=== PATIENT | female | born 1960 | race Caucasian/White ===

== ENCOUNTER 2017-05-12 09:24 | Inpatient (IN) | payer SELFPAY ==
[~2017-05-12] VITALS: Ht 167.6 cm; Wt 46.5 kg
[~2017-05-12 09:24] MED LIST: CALCIUM 500 MG1 EACH PO; DAILY VITAMIN1 EAC8 PO; NORCO 5/3251 TABLET PO; TYLENOL ARTHRI650 MG PO
[2017-05-12 17:12] LABS: EOSINOPHIL (%) 0.3 % (0-5); HEMATOCRIT 38.5 % (36.0-46.0); IMMATURE GRANULOCYTE (%) 0.2 % (0.0-0.7); INSTRUMENT ABS NEUTROPHIL CT 3.1 K/uL; LYMPHOCYTE COUNT 2.4 K/uL (1.0-2.8); MCH 35.3 PG (29.0-34.0); MCHC 35.1 G/DL (30.0-36.0); MCV 100.8 FL (83-99); MEAN PLAT.VOLUME 9.5 uM^3 (9.5-12.4); MONOCYTE (%) 10.1 % (3-12); MONOCYTE COUNT 0.6 K/uL (0-0.8); NEUTROPHIL (%) 49.9 % (45-76); NEUTROPHIL COUNT 3.1 K/uL (1.8-6.4); PLATELET COUNT 63 K/uL (156-360); RBC DIS.WIDTH-CV 11.9 % (11.8-14.6); RBC DIS.WIDTH-SD 44.5 % (39-53); RED BLOOD COUNT 3.82 M/uL (3.80-5.20); WHITE BLOOD COUNT 6.1 K/uL (4.1-10.2)
[2017-05-12 17:18] LABS: PROTHROMBIN TIME 10.9 SEC (10.2-12.9)
[2017-05-12 17:21] LABS: CHLORIDE 101 mEq/L (99-109); POTASSIUM 4.2 mEq/L (3.7-5.4); SODIUM 138 mEq/L (136-147)
[2017-05-12 17:22] LABS: GLUCOSE 106 mg/dL (70-99)
[2017-05-12 17:24] LABS: ANION GAP 12 MEQ/L (2-14)
[2017-05-12 17:26] LABS: GFR ESTIMATE (CALCULATED) > 59 mL/min/
[2017-05-12 17:27] LABS: UREA NITROGEN (BUN) 9 mg/dL (9-23)
[2017-05-12] MEDS ORDERED: POTASSIUM-9999 MG PO (17:54)
[2017-05-12 22:08] VITALS: BP 116/80
[2017-05-12 22:15] VITALS: BP 116/80
[2017-05-12 23:09] VITALS: BP 116/80
[2017-05-12 23:54] VITALS: BP 118/72
[2017-05-13 03:42] VITALS: BP 90/57
[2017-05-13 06:38] VITALS: BP 98/56
[2017-05-13 06:55] LABS: MCV 102.6 FL (83-99)
[2017-05-13 07:14] LABS: ANION GAP 10 MEQ/L (2-14); CHLORIDE 98 MEQ/L (99-109); GFR ESTIMATE (CALCULATED) > 59 mL/min/; GLUCOSE 149 mg/dL (70-99); POTASSIUM 4.1 MEQ/L (3.7-5.4); SAMPLE HEMOLYSIS CHECK 0; SAMPLE ICTERIC CHECK 0; SAMPLE LIPEMIA CHECK 0; SODIUM 135 MEQ/L (136-147); UREA NITROGEN (BUN) 11 mg/dL (9-23)
[2017-05-13 07:45] VITALS: BP 95/58
[2017-05-13] MEDS ORDERED: BENADRYL25 MG PO (09:19)
[2017-05-13] MEDS ORDERED: SENNA PLUS TAB1 EACH PO (09:21)
[2017-05-13] MEDS ORDERED: LOVENOX40 MG/0.4 SC (09:22)
[2017-05-13] MEDS ORDERED: ENDOCET 5-3251 EACH PO (09:22)
[2017-05-13 11:54] VITALS: BP 89/59
[2017-05-13 17:00] VITALS: BP 97/58
[2017-05-13 20:26] VITALS: BP 84/55
[2017-05-14 00:23] VITALS: BP 90/56
[2017-05-14 08:10] VITALS: BP 95/56
[2017-05-14] MEDS ORDERED: ASPIRIN325 MG PO (10:00)
== END 2017-05-14 11:39 | disposition home or self-care (01) | DRG 482 ==
LOC: EME 09:24 → ENRESERV 19:34 → SDC 19:37 → 3EAST 19:38 → 2SOUTH 19:38 → ENRESERV 20:07 → 3EAST 21:59
PROVIDERS: Orthopaedic Surgery Sports Medicine; Physician Assistant
PROC: 0SHB04Z Insertion of Internal Fixation Device into Left Hip Joint, Open Approach (ICD-10-PCS; principal; 2017-05-12)
DX: S72.145A Nondisplaced intertrochanteric fracture of left femur, initial encounter for closed fracture (principal); S72.115A Nondisplaced fracture of greater trochanter of left femur, initial encounter for closed fracture; S72.002A Fracture of unspecified part of neck of left femur, initial encounter for closed fracture; F17.210 Nicotine dependence, cigarettes, uncomplicated
CPT/HCPCS: 73502; 73700; 73721; 76000; 80048; 82306; 85014; 85018; 85025; 85610; 88305; 88311; 93005; 94799; 99281; 99284; C1713; J0131; J0690; J1170; J1650; J2250; J2405; J3010